=== PATIENT | female | born 1955 | race Caucasian/White ===

== ENCOUNTER 2023-08-03 10:00 | Emergency (ER) | payer MEDICARE, OTHER, SELFPAY ==
[2023-08-03 10:13] VITALS: BP 189/97
[2023-08-03 10:55] VITALS: BMI 31.3
[2023-08-03 11:09] VITALS: BP 140/85
[2023-08-03 11:21] LABS: % Basophils 0.4 % (0-2); % Eosinophils 0.5 % (0-6); % Immature Granulocytes 0.5 % (0-0.5); % Lymphocytes 12.3 % (20.5-51.1); % Monocytes 4.2 % (1.7-9.3); % Neutrophils 82.1 % (42.2-75.2); Absolute Eosinophils 0.1 10^3/uL (0-0.7); Absolute Immature Granulocytes 0.1 10^3/uL (0-0.05); Absolute Lymphocytes 1.3 10^3/uL (1.2-3.4); Absolute Monocytes 0.5 10^3/uL (0.1-0.6); Absolute Neutrophils 8.9 10^3/uL (1.4-6.5); Hematocrit 39.2 % (37.0-47.0); Hemoglobin 13.2 g/dL (12.0-16.0); Mean Corp Hgb Conc. 33.7 g/dL (33.0-37.0); Mean Corpuscular Hgb 31.1 pg (27.0-31.0); Mean Corpuscular Volume 92.5 fL (81.0-99.0); Mean Platelet Volume 9.9 fL (7.4-10.4); Nucleated Red Blood Cells % 0 %; Platelet Count 247 10^3/uL (130-400); Red Blood Cell Count 4.24 10^6/uL (4.20-5.40); Red Cell Dist. Width 12.9 % (11.5-14.5); White Blood Cell Count 10.8 10^3/uL (4.8-10.8)
--- NOTE | 2023-08-03 11:23 | ED.GENMED ---
History of Present Illness
<SUNNY Wilcox - Last Filed: 08/03/23 14:45>
General
Chief Complaint: Dizziness
Source: patient
Exam Limitations: none
Time Seen by Provider: 08/03/23 11:09
Nursing documentation reviewed up to this point in time: agreed with
Travel History
Have you had any contact with someone who has COVID-19?: No
Do you have any symptoms of coronavirus? Fever > 100 degrees, chills, cough, shortness of breath, sore throat, loss of taste or smell, muscle aches, or headache?: No
History of Present Illness
History of Present Illness:
67-year-old female presents to the ER for evaluation. Patient reports she is currently in the process of using a medication called Tolak preventive skin cancer treatment. She has been using it for the past 3 weeks and has normal rash to face and
neck from using the screen. She reports her she started with sore throat on Tuesday morning and started coughing last night. Today however she felt very weak and dizzy which is what prompted her to come to the ER. She denies any nausea vomiting
chest pain shortness of breath diarrhea constipation.
Past History
<SUNNY Wilcox - Last Filed: 08/03/23 14:45>
Past History
ED Past Medical History: None
ED Past Surgical History: Gynecological (Bilateral breast reduction and D&C)
Social History
Tobacco: Smoker
Alcohol: Occasional
Personal:
Living: with family
Family History
Family History: CAD; Negative Diabetes, Hypertension, Early CAD or Asthma
Review of Systems
<SUNNY Wilcox - Last Filed: 08/03/23 14:45>
Review of Systems
Allergies reviewed?: Yes
All Other Systems: ROS reviewed and negative except as documented in HPI and ROS
Constitutional: Reports no symptoms; Denies fever or chills
EENT: Reports other (runny nose )
Respiratory: Reports cough; Denies trouble breathing
Cardiac: Reports no symptoms
ABD/GI: Reports no symptoms
: Reports no symptoms
Musculoskeletal: Reports no symptoms
Neurological: Reports dizzy; Denies headache
Psychiatric: Reports no symptoms
Phy Exam
<SUNNY Wilcox - Last Filed: 08/03/23 14:45>
General Physical Exam
General Presentation: no apparent distress
General age: appears stated age
General Skin: warm and dry
General Habitus: normal
General Mental: alert
General Hydration: appears well hydrated
Cardiovascular Exam
Cardiovascular Exam: tachycardia
Pulmonary Exam
Pulmonary Exam: lungs clear and no respiratory distress
Gastrointestinal Exam
Gastrointestinal Exam: non tender and soft
Neurological Exam
Neurological Exam: alert and oriented x3
Carlo Coma Scale
Eye Opening: Spontaneous
Verbal Response: Oriented
Motor Response: Obeys Commands
GCS Total Score: 15
Musculoskeletal Exam
Musculoskeletal Exam: full ROM
Skin Exam
Skin Exam: normal color, warm/dry and other (red scabbed rash to face anterior neck /chest )
Psychiatric Exam
Psychiatric Exam: normal mood/affect
Course
<SUNNY Wilcox - Last Filed: 08/03/23 14:45>
Orders/Labs/Results
Orders:
Orders
08/03/23 10:06
EKG [Electrocardiogram (*1)] Urgent
Reason for Study: Chest Pain
08/03/23 10:07
EKG- Treatment ONCE
08/03/23 11:13
CMP [Comprehensive Metabolic Panel] Urgent
Complete Blood Count/With Diff Urgent
08/03/23 11:37
Chest [CR Chest - 2 Views ] Urgent
Comment:
Reason For Exam: cough
08/03/23 11:45
0.9% Sodium Chloride 1000 ml [Nss] 1,000 ml IV BOLUS
08/03/23 11:53
Influenza A+B Rapid Molecular Urgent
JC Source: Nasal Swab
Specimen Description:
08/03/23 11:55
COVID-19 Antigen Urgent
Source: Nasal Swab
08/03/23 13:25
Sodium Bicarbonate 50 meq IV NOW STA
Abnormal Lab Results
08/03/23
11:13
MCH 31.1 H pg
(27.0-31.0)
Abs Immat Gran (auto) 0.1 H 10^3/uL
(0-0.05)
Absolute Neuts (auto) 8.9 H 10^3/uL
(1.4-6.5)
Neutrophils % 82.1 H %
(42.2-75.2)
Lymphocytes % 12.3 L %
(20.5-51.1)
Sodium 133 L mmol/L
(135-145)
Carbon Dioxide 16 L mmol/L
(22-30)
BUN 46 H mg/dl
(7-17)
Creatinine 1.3 H mg/dL
(0.6-1.0)
Glucose 137 H mg/dl
(70-99)
Calcium 10.7 H mg/dl
(8.4-10.2)
AST 44 H U/L
(14-36)
ALT 45 H U/L
(0-35)
08/03/23 11:13
08/03/23 11:13
Vital Signs
Initial and Last Documented VS:
Initial Vital Signs
Temp Pulse Resp BP Pulse Ox
98.0 F 101 16 189/97 100
08/03/23 10:13 08/03/23 10:13 08/03/23 10:13 08/03/23 10:13 08/03/23 10:13
Last Documented Vital Signs
Temp Pulse Resp BP Pulse Ox
98.0 F 100 16 142/68 98
08/03/23 10:13 08/03/23 14:15 08/03/23 14:15 08/03/23 14:00 08/03/23 14:15
Boat Painter consulted with Physician
Boat Painter consulted with physician?: Yes
Name of Physician Consulted: Ana Paula
<Rikki Goss, DO - Last Filed: 08/03/23 13:52>
Orders/Labs/Results
Orders:
Orders
08/03/23 10:06
EKG [Electrocardiogram (*1)] Urgent
Reason for Study: Chest Pain
08/03/23 10:07
EKG- Treatment ONCE
08/03/23 11:13
CMP [Comprehensive Metabolic Panel] Urgent
Complete Blood Count/With Diff Urgent
08/03/23 11:37
Chest [CR Chest - 2 Views ] Urgent
Comment:
Reason For Exam: cough
08/03/23 11:45
0.9% Sodium Chloride 1000 ml [Nss] 1,000 ml IV BOLUS
08/03/23 11:53
Influenza A+B Rapid Molecular Urgent
JC Source: Nasal Swab
Specimen Description:
08/03/23 11:55
COVID-19 Antigen Urgent
Source: Nasal Swab
08/03/23 13:25
Sodium Bicarbonate 50 meq IV NOW STA
Abnormal Lab Results
08/03/23
11:13
MCH 31.1 H pg
(27.0-31.0)
Abs Immat Gran (auto) 0.1 H 10^3/uL
(0-0.05)
Absolute Neuts (auto) 8.9 H 10^3/uL
(1.4-6.5)
Neutrophils % 82.1 H %
(42.2-75.2)
Lymphocytes % 12.3 L %
(20.5-51.1)
Sodium 133 L mmol/L
(135-145)
Carbon Dioxide 16 L mmol/L
(22-30)
BUN 46 H mg/dl
(7-17)
Creatinine 1.3 H mg/dL
(0.6-1.0)
Glucose 137 H mg/dl
(70-99)
Calcium 10.7 H mg/dl
(8.4-10.2)
AST 44 H U/L
(14-36)
ALT 45 H U/L
(0-35)
08/03/23 11:13
08/03/23 11:13
Vital Signs
Initial and Last Documented VS:
Initial Vital Signs
Temp Pulse Resp BP Pulse Ox
98.0 F 101 16 189/97 100
08/03/23 10:13 08/03/23 10:13 08/03/23 10:13 08/03/23 10:13 08/03/23 10:13
Last Documented Vital Signs
Temp Pulse Resp BP Pulse Ox
98.0 F 100 16 142/68 98
08/03/23 10:13 08/03/23 14:15 08/03/23 14:15 08/03/23 14:00 08/03/23 14:15
<SUNNY Wilcox - Last Filed: 08/03/23 14:45>
MDM/Problems Addressed
Differential Diagnosis Includes:
Not limited to viral syndrome, dehydration, UTI
MDM/Problems Addressed:
Patient is a 67-year-old female who presented with dizziness this morning. Patient started with cough URI for the past several days has been taking adhw-gyv-byizmps Delsym but today felt dizzy which is what prompted her to come to the ER. She
denies any fever or chills. Denies any chest pain shortness of breath nausea vomiting. She presented awake alert anxious tearful tachycardic. She is afebrile here with a normal white count stable hemoglobin. Patient however with abnormal
electrolytes, patient is acidotic with a bicarb of 16 with a BUN of 46 creatinine 1.3 last creatinine was normal however that was in 2014. LFTs minimally elevated in the 40s. Patient received fluids here feeling much better. Tachycardia improved.
She admits to not being a good water drinker. She denies any diarrhea.
Case discussed with Dr. Goss who evaluated patient. Case discussed with Dr. Mayen, nephrology who does recommend giving 1 amp of bicarbonate. Patient was given fluids here feeling better ate and drank here likely from dehydration, renal
insufficiency. not likely from Tolak skin cream. Patient will be discharged home with close outpatient follow-up family doctor to recheck labs in the next several days. She is to return if any worsening of symptoms.
Patient has been eating and drinking here feels well after go home. Again discussed close outpatient follow-up with family doctor and the importance of recheck labs and encourage fluids
<SUNNY Wilcox - Last Filed: 08/03/23 14:45>
*Radiology
Radiology exam reviewed: radiology read reviewed
*Pulse Oximetry
Patient hypoxic: no
*EKG
Heart Rate: 139
Rate: tachycardiac
Rhythm: sinus
Ischemia: no ischemia
<Rikki Goss DO - Last Filed: 08/03/23 13:52>
*EKG
Interpreted by ED Provider?: Yes
EKG Intrepretation Date: 08/03/23
EKG Intrepretation Time: 13:49
Interpretation: normal
Comparison EKG: no comparison EKG present
*Oxyacetylene Welder Interpretation
Rate: tachycardiac
Interpretation: abnormal
Heart Rate: 110
Rhythm: sinus
*Critical Care Note
Total Time (30-74mins, 75-104mins- exclusive of procedures): Not Applicable
<SUNNY Wilcox - Last Filed: 08/03/23 14:45>
Patient Management
Discussion with other providers: Tuberculosis Specialist (DR Mayen (nephrology))
ED Attending Note
<SUNNY Wilcox - Last Filed: 08/03/23 14:45>
-
Portions of this chart may have been created with voice recognition software.� Occasional wrong word or��sound alike� substitutions may have occurred due to the inherent limitations of voice recognition software.
<Rikki Goss DO - Last Filed: 08/03/23 13:52>
ED Attending Note
Patient seen and examined by attending physician: Yes
I performed the substantive portion of visit, reviewed & personally made and approve the management plan that is documented in note by myself or CRISTÓBAL.: Yes
ED Attending Note:
Patient is a 67-year-old female who presents to the emergency department taking cough medicine and feeling disoriented and weak. Patient has been doing skin treatment that has resulted in 2 redness and peeling of her skin. Patient is doing on the
instruction by dermatology. However patient has been feeling weak and started with a upper respiratory infection has been taking Delsym and then begins to feel weak, lightheaded and disoriented. Patient feels like she is a step behind. Patient is
doing better at this time. Patient admits to not drinking much in the way of fluids. Patient's vital signs show elevated blood pressure as well as heart rate. Patient was given saline which started to improve the situation. Patient's BUN and
creatinine are elevated and abnormal. This is a new finding. In addition the CO2 is 16. Given the patient's renal function spoke with nephrology and will give more fluid and encouraged the patient to drink. Patient also given an amp of bicarb.
Patient will be discharged to follow-up with her family doctor.
Discharge Plan
Departure
Patient Disposition: Home (Routine Discharge)
Date of Disposition: 08/03/23
Time of Disposition: 14:40
Patient with high blood pressure during this ER visit?: Yes
Condition: Fair
Discharge Problem:
Acute dehydration
Instructions: Dehydration, Adult (DC), Dizziness, BLOOD PRESSURE
Prescriptions:
No Action
No Current Medications
0
Referrals:
Gerson Harper MD [Family Provider] -
Activity Restrictions/Additional Instructions:
As discussed you were dehydrated here in the ER and well-hydrated. It is importantly that you follow-up with your family doctor in the next 2 to 3 days for reevaluation of your symptoms and repeat renal function/labs.
Symptoms are also consistent with viral syndrome. In addition to staying well-hydrated you may take ijro-uod-zexitiy Flonase for upper respiratory symptoms. Return to the ER if any worsening of symptoms of increasing weakness worsening dizziness
fever chills lightheaded nests or any further concerns.
Interventions
Interventions:
*Risk Screen - Suicide Last Done: 08/03/23 10:55
*General Assessment Last Done: 08/03/23 10:55
*Neglect/Abuse Screening Last Done: 08/03/23 10:55
ED- Fall Risk Assessment Last Done: 08/03/23 12:11
*ED COVID-19 Vaccine History Last Done: 08/03/23 10:13
ED- Neurological Assessment Last Done: 08/03/23 10:55
ED Swallowing Screen Last Done: 08/03/23 12:11
[2023-08-03 11:39] LABS: ALT (SGPT) 45 U/L (0-35); AST (SGOT) 44 U/L (14-36); Albumin 4.9 g/dl (3.5-5.0); Alkaline Phosphatase 92 U/L (38-126); Blood Urea Nitrogen 46 mg/dl (7-17); Calcium 10.7 mg/dl (8.4-10.2); Carbon Dioxide 16 mmol/L (22-30); Chloride 104 mmol/L (98-107); Estimated Creatinine Clearance 41 ml/min; Glucose 137 mg/dl (70-99); Potassium 4.8 mmol/L (3.5-5.1); Sodium 133 mmol/L (135-145); Total Bilirubin 1.2 mg/dl (0.2-1.3); Total Protein 8.1 g/dl (6.3-8.2); eGFR 44.51
[2023-08-03] MEDS: NSS 1000 IV (11:51)
[2023-08-03 12:20] LABS: COVID-19 Antigen Negative (Negative)
[2023-08-03 12:54] VITALS: BP 180/89
[2023-08-03 13:00] VITALS: BP 127/115
[2023-08-03] MEDS: SODIUM BICARBONATE 50 MEQ IV (13:33)
[2023-08-03 14:00] VITALS: BP 142/68
== END 2023-08-03 15:08 | disposition home or self-care (01) ==
LOC: EMR 10:00
PROVIDERS: Nurse Practitioner; EMERGENCY PHYSICIAN Emergency Medicine; FAMILY PHYSICIAN Family Medicine
DX: E86.0 Dehydration (principal); E87.20 Acidosis, unspecified; R03.0 Elevated blood-pressure reading, without diagnosis of hypertension; F17.200 Nicotine dependence, unspecified, uncomplicated; Z11.52 Encounter for screening for COVID-19
CPT/HCPCS: 99285; 96374; 96361; 71046; 80053; 85025; 87502; 87811; 93005

== ENCOUNTER 2023-11-24 15:39 | Inpatient (IN) | payer MEDICARE, OTHER, SELFPAY ==
[2023-11-24] VITALS (13 sets, daily range): BP systolic 102–132; BP diastolic 47–68
[2023-11-24] MEDS: NSS 1000 IV ×2 (09:40→16:39)
--- NOTE | 2023-11-24 09:41 | ED.GENMED ---
History of Present Illness
General
Chief Complaint: Abdominal Pain
Source: patient and spouse
Exam Limitations: none
Time Seen by Provider: 11/24/23 09:24
Nursing documentation reviewed up to this point in time: agreed with
Travel History
Have you had any contact with someone who has COVID-19?: No
Do you have any symptoms of coronavirus? Fever > 100 degrees, chills, cough, shortness of breath, sore throat, loss of taste or smell, muscle aches, or headache?: No
History of Present Illness
History of Present Illness:
68-year-old female presents emergency department complaining of diffuse abdominal pain for the past 2 days, worsening. 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
Past History
Past History
ED Past Medical History: Other (Anemia)
ED Past Surgical History: Gynecological (Bilateral breast reduction and D&C)
Social History
Tobacco: Smoker
Alcohol: Occasional
Personal:
Living: with family
Family History
Family History: CAD; Negative Diabetes, Hypertension, Early CAD or Asthma
Review of Systems
Review of Systems
Allergies reviewed?: Yes
All Other Systems: Not applicable
Constitutional: Reports no symptoms
EENT: Reports no symptoms
Respiratory: Reports no symptoms
Cardiac: Reports no symptoms
ABD/GI: Reports abdominal pain
: Reports no symptoms
Musculoskeletal: Reports no symptoms
Skin: Reports no symptoms
Neurological: Reports no symptoms
Endocrine: Reports no symptoms
Hematologic/Lymphatic: Reports no symptoms
Psychiatric: Reports no symptoms
Phy Exam
Physical Exam
Physical Exam:
Physical Exam
General: Afebrile
Neck: supple. no meningeal signs. normal posterior pharynx
Heart: s1/s2 regular rate and rhythm, no murmur. equal radial
pulses.
HEENT: Pupils equal round reactive to light, EOMI
Lungs: no acute respiratory distress. clear bilaterally
Abdomen: normal bowel sounds. Diffuse tenderness, with rebound guarding. No CVAT
Neuro: alert and oriented. no focal neurological deficits cranial nerves II through XII intact
Skin: no rash
Psychiatric: well kept. interactive and cooperative
Extremities: no edema. no calf tenderness. negative homans. good distal pulses
Course
Orders/Labs/Results
Orders:
Orders
11/24/23 09:32
IV Insert/Care/Rem.- Treatment PRN
11/24/23 09:39
CT Abd/pelvis W Iv Cont Urgent
Comment:
Reason For Exam: diffuse abdominal pain, guarding
Complete Blood Count/With Diff Urgent
Comprehensive Metabolic Panel Urgent
Lipase Urgent
11/24/23 09:40
0.9% Sodium Chloride 1000 ml [Nss] 1,000 ml IV BOLUS
0.9% Sodium Chloride 1000 ml [Nss] 1,000 ml IV BOLUS
11/24/23 11:02
Urinalysis Reflex To Culture Urgent
Date Specimen was Collected: 11/24/23
Time Specimen was Collected: 10:18
Urine Microscopic Reflex Cult Urgent
Urine Culture Urgent
JC Source: U
Specimen Description:
Date Specimen was Collected: 11/24/23
Time Specimen was Collected: 10:18
11/24/23 13:32
Piperacillin/Tazo 4.5 Gram [Zosyn] 4.5 gram in 100 ml IV NOW
11/24/23 13:54
Morphine Sulfate 4 mg IV NOW STA
11/24/23 14:00
Bupivacaine Mpf 0.25% [Sensorcaine-Mpf 0.25% Vial] 30 ml .ROUTE .STK-MED ONE
11/24/23 14:13
Admit/Transfer Patient As Directed
Co-Sign Provider:
Level of Care: Post Proc/Surg Recovery
Assign to:: Medical/Surgical
Physician / Group: Phan Nails
Diagnosis: acute appendicitis; lap appy
Reason for Overnight Stay: Require IV med- infection
11/24/23 14:14
Code Status As Directed
Resuscitation Status: Full Code
11/24/23 14:16
Fentanyl Citrate/Pf [Sublimaze] 100 mcg .ROUTE .STK-MED ONE
Lidocaine 2% Mpf [Xylocaine Mpf 2%] 100 mg .ROUTE .STK-MED ONE
Midazolam HCl [Versed] 2 mg .ROUTE .STK-MED ONE
Propofol [Diprivan] 20 ml .ROUTE .STK-MED
Rocuronium [place] [Rocuronium] 50 mg .ROUTE .STK-MED ONE
11/24/23 14:22
HYDROmorphone [Dilaudid] 0.25 mg IV PACU-Q5MPRN PRN
HYDROmorphone [Dilaudid] 0.5 mg IV PACU-Q5MPRN PRN
Meperidine [Demerol] 12.5 mg IV PACU-Q5MPRN PRN
Ondansetron Injectable [Zofran] 4 mg IV PACU-ONCEPRN PRN
Prochlorperazine [Compazine] 5 mg IV PACU-ONCEPRN PRN
Notify MD As Directed
Notify physician if: for SDS patients with known or suspected sleep obstructive sleep apnea, monitor in the
PACU.
Notify MD for any apneic/desaturation episodes
O2 Therapy [RESP] Urgent
Titrate/Wean O2 to maintain O2 sat greater than (%): 92
Special Instructions: -Provide supplemental oxygen to achieve O2 sat of 92% or greater.
-After 15 min, may wean O2 and discontinue if patient is able to maintain O2 sat of 92%
or greater during recovery period.
If patient is a discharge home, without oxygen therapy, notify anestheiologist if
unable to maintain O2 SAT of 92% or greater on room air for MD clearance.
11/24/23 14:25
Dexamethasone Sod Phosphate [Decadron] 20 mg .ROUTE .STK-MED ONE
11/24/23 14:30
Normosol (Mult Electrolytes) [Normosol-R] 1,000 ml IV PER PROTOCOL
Abnormal Lab Results
11/24/23 11/24/23
09:39 11:02
WBC 13.1 H 10^3/uL
(4.8-10.8)
Abs Immat Gran (auto) 0.1 H 10^3/uL
(0-0.05)
Absolute Neuts (auto) 11.1 H 10^3/uL
(1.4-6.5)
Absolute Monos (auto) 0.7 H 10^3/uL
(0.1-0.6)
Neutrophils % 84.3 H %
(42.2-75.2)
Lymphocytes % 9.7 L %
(20.5-51.1)
Creatinine 1.3 H mg/dL
(0.6-1.0)
Glucose 132 H mg/dl
(70-99)
Calcium 10.4 H mg/dl
(8.4-10.2)
Total Bilirubin 2.4 H mg/dl
(0.2-1.3)
Leukocyte Esterase Rfl 2+ A
(Negative)
11/24/23 09:39
11/24/23 09:39
Vital Signs
Initial and Last Documented VS:
Initial Vital Signs
Temp Pulse Resp BP Pulse Ox
98.2 F 99 16 125/56 98
11/24/23 09:17 11/24/23 09:17 11/24/23 09:17 11/24/23 09:17 11/24/23 09:17
Last Documented Vital Signs
Temp Pulse Resp BP Pulse Ox
98.2 F 68 16 116/53 98
11/24/23 09:17 11/24/23 12:21 11/24/23 09:17 11/24/23 12:21 11/24/23 12:21
MDM/Problems Addressed
Differential Diagnosis Includes:
Appendicitis, diverticulitis
MDM/Problems Addressed:
68-year-old female with acute appendicitis, no rupture or perforation. Dr. Nails to take to the OR.
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
*Radiology
Radiology exam reviewed: radiology read reviewed (Acute appendicitis, complex ovarian cyst on CT scan)
*Pulse Oximetry
Patient hypoxic: no
*EKG
Interpreted by ED Provider?: NA
*Cafe Site Attendant Interpretation
Rate: Cafe Site Attendant- N/A
*Critical Care Note
Total Time (30-74mins, 75-104mins- exclusive of procedures): Not Applicable
Patient Management
Discussion with other providers: Water Meter Installer (General surgery)
Escalation/DeEscalation of care consider admission/obs:
Admit indicated
ED Attending Note
-
Portions of this chart may have been created with voice recognition software.� Occasional wrong word or��sound alike� substitutions may have occurred due to the inherent limitations of voice recognition software.
Discharge Plan
Departure
Patient Disposition: Admit
Date of Disposition: 11/24/23
Time of Disposition: 13:35
Admit to: OR
Presentation/result/management discussed w/ accepting MD/DO: General surgery Dr. Yañez
Patient with high blood pressure during this ER visit?: Yes
Discharge Problem:
Acute appendicitis, Complex ovarian cyst
Interventions
Interventions:
*Risk Screen - Suicide Last Done: 11/24/23 09:18
*General Assessment Last Done: 11/24/23 09:18
*Neglect/Abuse Screening Last Done: 11/24/23 09:18
ED- Fall Risk Assessment Last Done: 11/24/23 14:08
*ED COVID-19 Vaccine History Last Done: 11/24/23 09:21
*Nursing Disposition Last Done: 11/24/23 14:08
DZ-Fmajgx-Giqckcxdzk Assessment Last Done: 11/24/23 09:31
Discharge Date and Time
Discharge Date/Time: 11/24/23 14:09
[2023-11-24 09:55] LABS: % Basophils 0.3 % (0-2); % Eosinophils 0.2 % (0-6); % Immature Granulocytes 0.4 % (0-0.5); % Lymphocytes 9.7 % (20.5-51.1); % Monocytes 5.1 % (1.7-9.3); % Neutrophils 84.3 % (42.2-75.2); Absolute Immature Granulocytes 0.1 10^3/uL (0-0.05); Absolute Lymphocytes 1.3 10^3/uL (1.2-3.4); Absolute Monocytes 0.7 10^3/uL (0.1-0.6); Absolute Neutrophils 11.1 10^3/uL (1.4-6.5); Hematocrit 39.5 % (37.0-47.0); Hemoglobin 13.2 g/dL (12.0-16.0); Mean Corp Hgb Conc. 33.4 g/dL (33.0-37.0); Mean Corpuscular Hgb 30.6 pg (27.0-31.0); Mean Corpuscular Volume 91.4 fL (81.0-99.0); Mean Platelet Volume 9.7 fL (7.4-10.4); Nucleated Red Blood Cells % 0 %; Platelet Count 225 10^3/uL (130-400); Red Blood Cell Count 4.32 10^6/uL (4.20-5.40); Red Cell Dist. Width 13.6 % (11.5-14.5); White Blood Cell Count 13.1 10^3/uL (4.8-10.8)
[2023-11-24 10:10] LABS: ALT (SGPT) 34 U/L (0-35); AST (SGOT) 31 U/L (14-36); Albumin 4.7 g/dl (3.5-5.0); Alkaline Phosphatase 89 U/L (38-126); Blood Urea Nitrogen 15 mg/dl (7-17); Calcium 10.4 mg/dl (8.4-10.2); Carbon Dioxide 26 mmol/L (22-30); Chloride 100 mmol/L (98-107); Glucose 132 mg/dl (70-99); Lipase 156 U/L (23-300); Potassium 4.4 mmol/L (3.5-5.1); Sodium 135 mmol/L (135-145); Total Bilirubin 2.4 mg/dl (0.2-1.3); Total Protein 7.6 g/dl (6.3-8.2); eGFR 44.24
[2023-11-24 11:16] LABS: Urine Albumin Negative (Neg - Trace); Urine Bilirubin Negative (Negative); Urine Character Clear (Clear); Urine Color Yellow; Urine Glucose Negative (Negative); Urine Ketone Negative (Negative); Urine Leukocyte 2+ (Negative); Urine Nitrite Negative (Negative); Urine Occult Blood Negative (Negative); Urine Urobilinogen Negative (Neg - 1+)
[2023-11-24 11:58] LABS: Urine Squamous Cell 26-30 /LPF (Few)
[2023-11-24 12:00] LABS: Urine Red Blood Cell 0-2 /HPF (0-2)
[2023-11-24] MEDS: ZOSYN 100 IV (13:43)
[2023-11-24] MEDS: MORPHINE SULFATE 4 MG IV (14:02)
--- NOTE | 2023-11-24 14:07 | HPS.HSE ---
Family Physician
-
Family Physician: Gerson Harper
Chief Complaint
-
Abdominal pain
History of Present Illness
Patient is a 68-year-old female was in her usual baseline state of health until Tuesday, approximately 36 to 48 hours ago. She developed the acute onset of periumbilical abdominal pain which was increased in severity and continues to
localize to the area as well as right lower quadrant. She has had anorexia but no nausea or vomiting. Last bowel movement yesterday. Has not passed much flatus since. Continue progressive abdominal distention and discomfort prompting emergency
department evaluation today. No similar prior episodes.
Medical History
Past Medical History
Past Medical History: Reports Other (History of anemia, hypertension)
Past Surgical History: Reports None
Social History
Tobacco: Non-smoker
Personal:
Living: With Family
Family History
Family History: Not pertinent
Allergies / Home Medications
Allergies reflects when Allergies were last updated in [facility].
Home Medications with original date entered in [facility]
Allergy/Medication List:
�Medication �Instructions �Recorded �Confirmed �Type
beta carotene 5,000 unit capsule 5,000 unit PO DAILY 11/24/23 11/24/23 History
coQ10 (ubiquinol) 100 mg capsule 100 mg PO DAILY 11/24/23 11/24/23 History
coconut oil 1,000 mg capsule 1,000 mg PO DAILY 11/24/23 11/24/23 History
ezetimibe 10 mg tablet (Zetia) 10 mg PO QPM 11/24/23 11/24/23 History
ibuprofen 200 mg tablet (Advil) 200 mg PO Q6HPRN PRN mild pain 11/24/23 11/24/23 History
lisinopril 40 mg tablet 40 mg PO QPM 11/24/23 11/24/23 History
omega-3 fatty acids 1,000 mg PO DAILY 11/24/23 11/24/23 History
polyethylene glycol 3350 17 gram 17 g PO DAILYPRN PRN constipation 11/24/23 11/24/23 History
oral powder packet (Miralax)
Allergies
Allergy/AdvReac Type Severity Reaction Status Date / Time
NKA - No Known Allergies Allergy none Uncoded 11/24/23 09:18
nuts Allergy Rash Uncoded 11/24/23 09:18
Review of Systems
-
History Source: Patient
A 12 point ROS was completed and negative except as noted: Yes
Physical Exam
Vital Signs
Vital Signs
Temp Pulse Resp BP Pulse Ox
98.2 F 68 16 116/53 98
11/24/23 09:17 11/24/23 12:21 11/24/23 09:17 11/24/23 12:21 11/24/23 12:21
Physical Exam
General: Well Developed, Well Nourished, No Apparent Distress and Comfortable (But acutely ill-appearing)
HEENT: NormoCephalic, Anicteric, Moist mucous membranes and Atraumatic
Respiratory: Non Labored Respirations
Cardiac: Regular Rhythm
GI: Soft, Tender (Tenderness to Palpation periumbilically with localized rebound and guarding) and Distended
Skin: Warm
Neuro: AO x 3
Psych: Calm
Laboratory Results
-
11/24/23 09:39
11/24/23 09:39
Laboratory Results
Total Bilirubin 2.4 mg/dl (0.2-1.3) H 11/24/23 09:39
AST 31 U/L (14-36) 11/24/23 09:39
ALT 34 U/L (0-35) 11/24/23 09:39
Alkaline Phosphatase 89 U/L (38-126) 11/24/23 09:39
Lipase 156 U/L (23-300) 11/24/23 09:39
Data Reviewed
-
CT Scan: Image Personally Visualized and interpreted, Report Reviewed by me, Discussed with Patient and Discussed with Family
Impression/Plan
-
IMPRESSION: 68-year-old female presented with acute appendicitis.
Reviewing CT imaging there is a dilated appendix with surrounding inflammatory changes. 2 areas within the appendix suggestive of obstructing fecaliths. No evidence of localizing fluid collections or significant free fluid.
Advised patient of CT imaging examination and history all consistent with acute appendicitis. We discussed treatment options and patient in agreement to proceed with appendectomy. Laparoscopic appendectomy was reviewed in detail including
operative technique, alternative treatment options, benefits and potential risks such as but not limited to bleeding, infectious and wound related complications, iatrogenic injury to surrounding viscera. We discussed typical postoperative recovery
pending operative findings. Any of the patient's or her 's concerns or questions were fully addressed and informed consent was obtained
PLAN: Patient added onto the OR schedule for appendectomy
Zosyn initiated in the emergency department
Continue routine supportive care pending or availability today
--- NOTE | 2023-11-24 14:19 | W.SUR.PREOP ---
Pre-Operative Surgical Note
-
I have examined this patient prior to the performance of the scheduled procedure.
The patient's condition is unchanged from the time of the current History and
Physical and the patient is able to undergo the scheduled procedure.
--- NOTE | 2023-11-24 15:34 | W.IMMPOSTOP ---
Addendum entered and electronically signed by Phan Nails MD 11/24/23 15:48:
#[id number]
Original Note:
Surgical Immed Post Op Note
-
Primary Surgeon: Jesu
Assisting Surgeon: None
Pre-op Diagnosis: Acute appendicitis
Post-op Diagnosis: Perforated acute appendicitis with localized peritonitis; without abscess
Left ovarian cyst
Procedure Performed: Laparoscopic appendectomy
Anesthesia Type: GETA +0.25% Marcaine
Specimen / Cultures: Appendix
Estimated Blood Loss: 4 mL
Complications: None immediate
Operative Findings: Acute appendicitis with focal areas of perforation secondary to fecaliths. Appendix completely walled off by surrounding small bowel serosa/mesentery and peritoneal lining of abdominal wall. No purulence, no abscess. Suction
control of localized purulent effluent coming from appendix without intra-abdominal spillage. No disruption of appendix with appendectomy. Appendix divided flush with the cecum utilizing Endo GOPAL purple 45 mm stapler.
Cursory inspection of the pelvis identified presence of CT described left ovarian cyst. No adhesions or other abnormalities in the region of the cyst.
Plan: Liquid diet initially postop monitoring for postoperative ileus; advance as tolerated tomorrow a.m. if no nausea
Continue Zosyn postop until discharge with plan for total of 7-day course of antibiotics postoperatively
Updated patient's via phone call postoperatively
[2023-11-24] MEDS: DILAUDID 0.5 MG IV (16:40)
[2023-11-24] MEDS: ZESTRIL 40 MG PO (17:17)
--- NOTE | 2023-11-24 17:18 | PTCARENOTE ---
Patient received from PACU in bed; IVF infusing; Surgical site assessed with SIGN HANGER SUPERVISOR, 3 lap sites and 1 puncture open to air with glue; Patient denies nausea/vomiting at this time; States abdominal pain is a 3 out of 10; Patient awake and alert;
Spouse at bedside; Call pichardo within reach; Bed in lowest position, wheels locked; Assessment ongoing
[2023-11-24] MEDS: ZOSYN 50 IV (20:21)
[2023-11-24] MEDS: MELATONIN 3 MG PO (21:14)
[2023-11-24] MEDS: OFIRMEV 100 IV (21:14)
[2023-11-24] MEDS: MAALOX 30 ML PO (23:14)
[2023-11-25] MEDS: ZOSYN 50 IV ×4 (01:46→19:41)
[2023-11-25] MEDS: NSS 1000 IV ×2 (01:46→17:25)
[2023-11-25 03:38] VITALS: BP 90/54
[2023-11-25] MEDS: OFIRMEV 100 IV (04:51)
[2023-11-25 05:12] VITALS: BP 124/66
[2023-11-25 06:50] VITALS: BP 112/66
--- NOTE | 2023-11-25 07:25 | W.PN.GS2 ---
Today's Communication / Plan
-
-- Clears, may need NPO if worsening bloating
-- Pain control: Tylenol, IV Dilaudid PRN, holding on Toradol given GARRICK (dehydration)
-- Continue IVF
-- OOB/ambulate
-- Lovenox for DVT
-- F/u AM labs
Assessment / Plan
-
Patient is a 68 yo F POD#1 s/p laparoscopic appendectomy for locally perforated appendicitis
AVSS
High risk for ileus given localized perforation on presentation, distended and tympanitic on exam, dietary education provided, instructed patient to take it slow with clears for today may need to back down to NPO if symptoms worsen
-- Clears, may need NPO if worsening bloating
-- Pain control: Tylenol, IV Dilaudid PRN, holding on Toradol given GARRICK (dehydration)
-- Continue IVF
-- Home BP medications
-- OOB/ambulate
-- PPI for GI
-- Lovenox for DVT
-- F/u AM labs
Subjective Data
-
Date of Service: November 25, 2023
Reports of bloating and abdominal distention. Denies any nausea or vomiting. No flatus or BM. Mild abdominal discomfort, but pain different than admission. Afebrile. Minimal ambulation. Voiding.
Objective Data
-
Intake and Output
11/24/23 11/25/23 11/26/23
06:59 06:59 06:59
Intake Total 340 / 340
Output Total 825 / 825
Balance -485 / -485
Intake:
Oral fluids 120 / 120
IV fluids (Total) 220 / 220
normosol 100 / 100
Output:
Urine, Voided 825 / 825
Vital Signs
Temp Pulse Resp BP Pulse Ox
98.6 F 65 16 124/66 95
11/25/23 03:38 11/25/23 03:38 11/25/23 03:38 11/25/23 05:12 11/25/23 03:38
Lab Results
11/24/23 09:39
Calcium 10.4 mg/dl (8.4-10.2) H 11/24/23 09:39
Total Bilirubin 2.4 mg/dl (0.2-1.3) H 11/24/23 09:39
AST 31 U/L (14-36) 11/24/23 09:39
ALT 34 U/L (0-35) 11/24/23 09:39
Alkaline Phosphatase 89 U/L (38-126) 11/24/23 09:39
Total Protein 7.6 g/dl (6.3-8.2) 11/24/23 09:39
Albumin 4.7 g/dl (3.5-5.0) 11/24/23 09:39
Physical Exam
-
Gen: NAD
Abd: soft, obese, moderate tenderness, distended, tympanitic, non-peritoneal, incisions c/d/i - no erythema or drainage, mild ecchymosis at lateral
[2023-11-25] MEDS: FLUSH (NSS) 1 FLUSH IV (08:44)
[2023-11-25] MEDS: NSS (PRESERVATIVE FREE) 10 ML IV (08:44)
[2023-11-25] MEDS: PROTONIX IV 40 MG IV (08:44)
[2023-11-25 09:57] LABS: Blood Urea Nitrogen 17 mg/dl (7-17); Carbon Dioxide 22 mmol/L (22-30); Chloride 106 mmol/L (98-107); Estimated Creatinine Clearance 42 ml/min; Glucose 133 mg/dl (70-99); Potassium 5.4 mmol/L (3.5-5.1); Sodium 136 mmol/L (135-145)
[2023-11-25 10:37] LABS: Hepatitis C Antibody Negative (Negative)
--- NOTE | 2023-11-25 10:54 | CM ---
Patient seen at bedside. Patient states that she lives with her duaghter, and grandchildren. Patient states she has one step to enter. Patient stated that she was independent and driving. Patient PCP is Dr. Harper and she uses the [facility] on
[address] in [place]. Patient s/p surgery and is up walking around in room. CM provided IMM for her to review. CM will continue to follow for discharge planning needs.
Plan: home with no needs vs home with VN
[2023-11-25 11:28] VITALS: BP 125/71
--- NOTE | 2023-11-25 15:41 | PN.CDI ---
CDI
- -
CDI:
Physician Documentation Request
Admit Date: 11/24/23 15:39
Dear Doctor Florentin,
Please review the following and provide your response in the progress notes.
Clinical Indicators:
Pt admitted with Acute Appendicitis with perforation and GARRICK
s/p Laparoscopic Appendectomy
WBC on admission:
11/24/23
09:39
WBC 13.1 H
HR/RR trend on admission:
11/24/23
09:17 11/24/23
15:44 11/24/23
16:00
Pulse 99 102 99
Resp Rate 16 21 21
11/24/23
16:15 11/24/23
16:30 11/24/23
18:10
Pulse 103 99 94
Resp Rate 23 22 17
Please clarify which of the following most accurately describes the status of the patient's infection:
Sepsis
- Systemic manifestations of infection, with 2 or more SIRS criteria which include:
- Fever >100.4 degrees F or hypothermia < 96.8 degrees F
- Leukocytosis - WBC > 12,000 or leukopenia - WBC < 4,000 or > 10% bands
- Tachycardia > 90 beats per minute
- Tachypnea - RR > 20 breaths per minute or PaCO2 , 32mmHg
Source: Merck Manual 2013
Severe Sepsis
- Sepsis with associated acute organ dysfunction, such as renal or respiratory failure
- Documentation should indicate the association between the sepsis and the organ dysfunction
Appendicitis Only, Without Systemic Illness
Other
Use of terms such as suspected, likely, concern for, or probable (associated with a specific diagnosis that is being evaluated, monitored, or treated as if it exists) are acceptable and can be coded in the inpatient setting, when documented at the
time of discharge.
Thank you,
Martina Henry RN, BSN
CDI Specialist
[facility]
Please use your independent medical judgment in providing your response.
[2023-11-25 15:46] VITALS: BP 122/62
[2023-11-25] MEDS: ZESTRIL 40 MG PO (17:27)
[2023-11-25] MEDS: LOVENOX 40 MG SC (17:27)
[2023-11-25] MEDS: NSS IV (19:39)
[2023-11-25 23:43] VITALS: BP 102/57
[2023-11-26] MEDS: ZOSYN 50 IV ×2 (01:56→08:06)
[2023-11-26] MEDS: NSS 1000 IV (03:14)
[2023-11-26 07:59] VITALS: BP 131/65
[2023-11-26] MEDS: NSS (PRESERVATIVE FREE) 10 ML IV (08:04)
[2023-11-26] MEDS: PROTONIX IV 40 MG IV (08:05)
[2023-11-26 08:10] LABS: Hematocrit 34.1 % (37.0-47.0); Mean Corp Hgb Conc. 30.5 g/dL (33.0-37.0); Mean Corpuscular Hgb 30.4 pg (27.0-31.0); Mean Corpuscular Volume 99.7 fL (81.0-99.0); Mean Platelet Volume 10.5 fL (7.4-10.4); Platelet Count 190 10^3/uL (130-400); Red Blood Cell Count 3.42 10^6/uL (4.20-5.40); Red Cell Dist. Width 13.8 % (11.5-14.5); White Blood Cell Count 8.9 10^3/uL (4.8-10.8)
--- NOTE | 2023-11-26 08:14 | W.PN.GS2 ---
Today's Communication / Plan
-
Dispo planning
Assessment / Plan
-
Patient is a 68 yo F POD#2 s/p laparoscopic appendectomy for locally perforated appendicitis. Doing well, expected postoperative course.
--Regular diet today.
-- Likely home today on a 4-day course of antibiotics.
Time Spent
Total Time Spent with Patient (in minutes): 10
Subjective Data
-
Date of Service: November 26, 2023
Interval Events:
No acute events overnight. Slept well. Pain Controlled. Denies Nausea/Vomiting, +bowel function. Tolerating diet.
Objective Data
-
Intake and Output
11/25/23 11/26/23 11/27/23
06:59 06:59 06:59
Intake Total 340 / 340 2730 / 2730
Output Total 825 / 825 1 / 1
Balance -485 / -485 2729 / 2729
Intake:
Oral fluids 120 / 120 1380 / 1380
IV fluids (Total) 220 / 220 1250 / 1250
normosol 100 / 100
IV piggybacks 100 / 100
Output:
Liquid stool amount 1 / 1
Rectum 1 / 1
Urine, Voided 825 / 825
Other:
Number of approximated MODERATE 2
amounts of urine
Number of unmeasured liquid
stools
Rectum 1
Vital Signs
Temp Pulse Resp BP Pulse Ox
98.4 F 62 17 131/65 94
11/26/23 07:59 11/26/23 07:59 11/26/23 07:59 11/26/23 07:59 11/26/23 07:59
Calcium 9.0 mg/dl (8.4-10.2) 11/25/23 07:59
Total Bilirubin 2.4 mg/dl (0.2-1.3) H 11/24/23 09:39
AST 31 U/L (14-36) 11/24/23 09:39
ALT 34 U/L (0-35) 11/24/23 09:39
Alkaline Phosphatase 89 U/L (38-126) 11/24/23 09:39
Total Protein 7.6 g/dl (6.3-8.2) 11/24/23 09:39
Albumin 4.7 g/dl (3.5-5.0) 11/24/23 09:39
Physical Exam
-
GENERAL/NEURO: Awake, Alert, no distress
CHEST: Unlabored breathing on RA
ABDOMEN: Soft, Non-Tender, Non-Distended, incisions clean dry and intact.
[2023-11-26 08:17] LABS: Hemoglobin 10.4 g/dL (12.0-16.0)
[2023-11-26 08:29] LABS: Blood Urea Nitrogen 15 mg/dl (7-17); Calcium 8.9 mg/dl (8.4-10.2); Carbon Dioxide 23 mmol/L (22-30); Chloride 110 mmol/L (98-107); Estimated Creatinine Clearance 42 ml/min; Glucose 101 mg/dl (70-99); Potassium 4.3 mmol/L (3.5-5.1); Sodium 141 mmol/L (135-145)
--- NOTE | 2023-11-26 10:45 | CM ---
CM reviewed chart and noted dc order
Bedside meeting- no dc needs noted
IMM completed- copy provided
Discharge Disposition- home, no needs, spouse transport
--- NOTE | 2023-11-26 11:38 | W.DCSUMMARY ---
Discharge Summary
Discharge Data
Date of Admission: 11/24/23
Date of Discharge: 11/26/23
-
Pending Results: Yes
Additional Pending Results:
OR pathology
Hospital Course
68-year-old female presents to [facility] on 11/24/2023 due to periumbilical abdominal pain. She underwent a laparoscopic appendectomy by Dr. Nails on 11/24/2023 she tolerated the procedure well the following day she was on a clear liquid
diet and her pain was controlled. On postop day 2 her diet was advanced to regular. She was doing well and her pain was controlled she denies nausea or vomiting is determined the patient be discharged home the patient was discharged home on a
4-day course of antibiotics I will discharge instructions discussed with the patient.
Discharge Plan
-
Patient Disposition: Home (Routine Discharge)
Discharge Diagnosis/Procedures: Acute appendicitis, incidental left ovarian cyst; laparoscopic appendectomy
Condition: Good
Diet: As tolerated and Regular
Additional Diets: Smaller meals initially after surgery as abdominal bloating and distention may be common for the first few days
Activity: No strenuous activity
Additional Activity: No lifting over 15 to 20 pounds for 3 to 4 weeks postoperatively. Walking, standing, stairs and routine light activities are all okay as tolerated
Driving Restrictions: No driving for 2 to 3 days or if using narcotics
Bathing Restrictions: OK to Shower
Wound Care: Glue at surgical sites typically peels off in 2 to 3 weeks
Activity Restrictions/Additional Instructions:
Call if fever >101 �F, worsening abdominal pains, persistent nausea with vomiting, redness and drainage from surgical sites, any concerns or questions
Referrals:
Gerson Harper MD [Family Provider] -
Phan Nails MD [Active] - in two weeks
Prescriptions:
New
acetaminophen [acetaminophen] 325 mg tablet
650 mg PO Q6HPRN PRN (Reason: mild pain) Qty: 14 0RF
amoxicillin-pot clavulanate 875-125 mg tablet
1 tab PO Q12 Qty: 8 0RF
Continued
polyethylene glycol 3350 [Miralax] 17 gram Powder In Packet
17 g PO DAILYPRN PRN (Reason: constipation)
beta carotene 5,000 unit Capsule
5,000 unit PO DAILY
ibuprofen [Advil] 200 mg Tablet
200 mg PO Q6HPRN PRN (Reason: mild pain)
lisinopril 40 mg Tablet
40 mg PO QPM
ezetimibe [Zetia] 10 mg Tablet
10 mg PO QPM
omega-3 fatty acids Capsule
1,000 mg PO DAILY
coconut oil 1,000 mg Capsule
1,000 mg PO DAILY
coQ10 (ubiquinol) 100 mg Capsule
100 mg PO DAILY
melatonin 3 mg Tablet
3 mg PO HS PRN (Reason: sleep)
Discharge Orders:
Discharge Patient (As Directed); Ordered 11/26/23
Ordered By: Osmany Valencia
Discharge Date and Time
Print Language: [place] CITIZEN
[2023-11-26 13:18] VITALS: BP 141/73
== END 2023-11-26 13:30 | disposition home or self-care (01) | DRG 398 ==
LOC: 2 SOUTH 15:39
PROVIDERS: Registered Nurse; ADMITTING PHYSICIAN Surgery; EMERGENCY PHYSICIAN Emergency Medicine; FAMILY PHYSICIAN Family Medicine
PROC: 0DTJ4ZZ Resection of Appendix, Percutaneous Endoscopic Approach (ICD-10-PCS; 2023-11-24)
DX: K35.32 Acute appendicitis with perforation, localized peritonitis, and gangrene, without abscess (principal); N17.9 Acute kidney failure, unspecified; N83.202 Unspecified ovarian cyst, left side; I10 Essential (primary) hypertension; K38.1 Appendicular concretions; E86.0 Dehydration; D64.9 Anemia, unspecified
CPT/HCPCS: 88304; 74177; 80048; 80053; 81003; 81015; 83690; 85025; 85027; 86803; 87077; 87086; 87147; 88342; 96361; 96365; 96375; 99285; Q9967